=== PATIENT | male | born 1965 | race Caucasian/White ===

== ENCOUNTER → 2016-06-23 | Outpatient (CLI) | payer BC ==
[2016-06-23 15:52] LABS: CHLORIDE,CL 106 mmol/L (98-110); SODIUM,NA 138 mmol/L (136-146)
== END ==
LOC: MW.CHIM 15:16
PROVIDERS: ATTEND Internal Medicine
DX: Z00.00 Encounter for general adult medical examination without abnormal findings (principal); R10.11 Right upper quadrant pain; I10 Essential (primary) hypertension; E78.1 Pure hyperglyceridemia; E66.9 Obesity, unspecified; N52.9 Male erectile dysfunction, unspecified
CPT/HCPCS: 36415; 80053; 80061; 83036; 84439; 84443; 85025; G0103

== ENCOUNTER → 2016-06-24 | Outpatient (CLI) | payer BC ==
--- NOTE | 2016-06-24 11:13 | US ---
EXAMINATION: Right upper quadrant ultrasound HISTORY: Pain COMPARISON: None TECHNIQUE: Grayscale and color Doppler images obtained. FINDINGS: The visualized pancreas appears normal. The liver is mildly increased in generalized echot exture without a focal hepatic mass. The gallbladder wall thickness is normal. No pericholecystic fl uid or shadowing gallstones. Common bile duct measures 4 mm. The common bile duct measures 6 mm. The right kidney measures 10.1 cm [id number] without evidence of hydronephrosis. The sonographic Murp hy sign is reported positive. IMPRESSION: 1. Sonographic Obrien sign is reported positive, however there are no secondary signs of cholecystit is. 2. Mild fatty infiltration of the liver.
== END | disposition home or self-care (01) ==
LOC: MW.US 08:44
PROVIDERS: ATTEND Surgery
DX: R10.11 Right upper quadrant pain (principal); R19.8 Other specified symptoms and signs involving the digestive system and abdomen; K76.0 Fatty (change of) liver, not elsewhere classified
CPT/HCPCS: 76705; 76705-26

== ENCOUNTER → 2016-06-30 | Outpatient (CLI) | payer BC | LOC: MW.CHIM 14:31 | PROVIDERS: ATTEND Internal Medicine | DX: R74.0 Nonspecific elevation of levels of transaminase and lactic acid dehydrogenase [LDH] (principal) | CPT/HCPCS: 36415; 86803 ==

== ENCOUNTER → 2016-07-07 | Outpatient (CLI) | payer BC ==
--- NOTE | 2016-07-07 17:21 | NM ---
EXAM DATE: 07/07/16 PATIENT'S AGE: 50 Patient: BHARTI OLIVERA Facility: [place], [place] Site Site : [id number] Study: NM Gallbladder [id number]/26/2017 10:59:40 AM Ordering Physician: JAY Final Report: HISTORY: 50-year-old male. Right upper quadrant abdominal pain. Technique: 4.2 millicuries of [id number] was injected intravenously. Images of the liver, gallbladder and abdomen were obtained in the anterior projection for 45 minutes. 2.0 mcg CCK was then administered intravenously and imaging was continued for an additional 30 minutes. Findings: There is good uptake of activity by the hepatocytes. There is visualization of the biliary tree, gallbladder and small bowel. In response to CCK administration, there is a normal gallbladder ejection fraction of 45 percent by 30 minutes. Impression: 1. Normal study. There is no evidence of acute or chronic cholecystitis. 2. Normal gallbladder ejection fraction of 45 percent. Dictated by Lance Hernandez MD @ Jul 07 2016 11:19AM (Electronic Signature) Report Signed by Proxy and Original Signed Document filed in the Medical Record. [id number]
== END ==
LOC: MW.NM 09:05
PROVIDERS: ATTEND Surgery
DX: R10.11 Right upper quadrant pain (principal)
CPT/HCPCS: 78227; A9537; J2805